=== PATIENT | female | born 1980 | race Hispanic/Latino ===

== ENCOUNTER → 2021-03-24 | Outpatient (CLI) | payer BC ==
[~2021-03-24] MED LIST: GADOTERATE MEGLUMINE 10 MMOL/20 ML VIAL IV ONE
== END | disposition home or self-care (01) ==
LOC: RAH 08:43
PROVIDERS: ATTEND Family Medicine
DX: S70.12XA Contusion of left thigh, initial encounter (principal); S80.12XA Contusion of left lower leg, initial encounter; M25.462 Effusion, left knee; M17.12 Unilateral primary osteoarthritis, left knee; M25.762 Osteophyte, left knee; X58.XXXA Exposure to other specified factors, initial encounter; Y93.89 Activity, other specified; Y92.89 Other specified places as the place of occurrence of the external cause; Y99.8 Other external cause status
CPT/HCPCS: 73723; A9575

== ENCOUNTER 2023-11-14 07:42 | Day surgery (SDC) | payer BC ==
[~2023-11-14] VITALS: Ht 167.6 cm; Wt 110.2 kg
[2023-11-14] VITALS (9 sets, daily range): BP systolic 123–163; BP diastolic 54–80; PULSE 60–72; RESP 15–17; TEMP 97.1–97.7
[2023-11-14] MEDS ORDERED: LOSA50TA64 PO (09:29)
[2023-11-14] MEDS ORDERED: PROP40TA7 PO (09:29)
[2023-11-14] MEDS ORDERED: proPOFol 10 MG/ML 20ML VIAL IV ONE (09:32)
[2023-11-14] MEDS ORDERED: LIDOCAINE PF 100MG/5ML (2%) SYRINGE 5ML ONE (09:32)
[2023-11-14] MEDS: 0.9%NACL 1000ML 1,000 ML IV ONE (09:35)
== END 2023-11-14 10:47 | disposition home or self-care (01) ==
LOC: ENDO 07:42
PROVIDERS: ATTEND Surgery
DX: R63.4 Abnormal weight loss (principal); K20.90 Esophagitis, unspecified without bleeding; K22.89 Other specified disease of esophagus; K31.89 Other diseases of stomach and duodenum; K44.9 Diaphragmatic hernia without obstruction or gangrene; I10 Essential (primary) hypertension; E78.5 Hyperlipidemia, unspecified; F41.9 Anxiety disorder, unspecified; E66.01 Morbid (severe) obesity due to excess calories; M19.90 Unspecified osteoarthritis, unspecified site; Z68.41 Body mass index [BMI] 40.0-44.9, adult; Z98.891 History of uterine scar from previous surgery; Z79.899 Other long term (current) drug therapy; Z98.890 Other specified postprocedural states
CPT/HCPCS: 82948; 81025; 43239; J7030; J2001; J2704; A4620; A4215 ×2; A4223; A4222; A4221; A4663; A4606; J3490

== ENCOUNTER → 2023-12-27 | Outpatient (CLI) | payer BC ==
[~2023-12-27] MED LIST changes: -GADOTERATE MEGLUMINE 10 MMOL/20 ML VIAL IV ONE; +LOSA50TA64 PO; +PROP40TA7 PO
[2023-12-27 16:29] LABS: CREATININE 0.7 mg/dL (0.5-1.0); POTASSIUM 3.8 mmol/L (3.5-5.1)
== END | disposition home or self-care (01) ==
LOC: LAB 15:37
PROVIDERS: ATTEND Internal Medicine
DX: R07.9 Chest pain, unspecified (principal)
CPT/HCPCS: 36415; 80048

== ENCOUNTER → 2024-01-03 | Outpatient (CLI) | payer BC ==
[~2024-01-03] MED LIST changes: +IOHEXOL 350 MG/ML 100ML INFUS..BTL IV ONE
== END | disposition home or self-care (01) ==
LOC: RAH 10:18
PROVIDERS: ATTEND Internal Medicine
DX: R07.9 Chest pain, unspecified (principal)
CPT/HCPCS: 75574; Q9967

== ENCOUNTER → 2024-01-09 | Outpatient (CLI) | payer BC ==
[~2024-01-09] MED LIST changes: -IOHEXOL 350 MG/ML 100ML INFUS..BTL IV ONE
== END | disposition home or self-care (01) ==
LOC: SHCH 10:44
PROVIDERS: ATTEND Internal Medicine
DX: R07.9 Chest pain, unspecified (principal)
CPT/HCPCS: 93306

== ENCOUNTER 2024-03-06 11:38 | Observation (INO) | payer BC ==
[2024-03-05 13:48] VITALS: BP 151/69; PULSE 70; RESP 14; TEMP 97.3
[2024-03-05 13:54] LABS: BASOPHILS # (AUTO) 0.04 K/uL (0.00-0.20); BASOPHILS % (AUTO) 0.4 % (0.0-5.0); EOSINOPHILS % (AUTO) 1.1 % (0.0-8.0); HEMATOCRIT 43.7 % (36-48); IMMATURE GRANULOCYTE ABSOLUTE 0.02 K/uL (0-1); LYMPHOCYTES # (AUTO) 2.2 K/uL (1.0-4.8); LYMPHOCYTES % (AUTO) 24.4 % (21.0-51.0); MEAN CORPUSCULAR HEMOGLOBIN 31.6 pg (27.0-33.0); MEAN CORPUSCULAR HGB CONC 33.4 g/dL (32.0-36.0); MEAN CORPUSCULAR VOLUME 94.6 fL (79-99); MONOCYTES # (AUTO) 0.5 K/uL (0.1-1.0); MONOCYTES % (AUTO) 5.5 % (3.0-13.0); NEUTROPHILS # (AUTO) 6.2 K/uL (1.8-7.7); NEUTROPHILS % (AUTO) 68.4 % (40.0-77.0); PLATELET COUNT (AUTO) 309 K/uL (130-400); RED BLOOD CELL COUNT(AUTO) 4.62 MIL/uL (4.00-5.50); RED CELL DISTRIBUTION WIDTH 12.8 % (11.0-15.5); WHITE BLOOD COUNT (AUTO) 9.1 K/uL (4.8-10.8)
[2024-03-05 14:09] LABS: ALBUMIN 3.7 g/dL (3.5-5.0); BILIRUBIN,TOTAL 0.5 mg/dL (0.2-1.0); CREATININE 0.8 mg/dL (0.5-1.0); POTASSIUM 4.3 mmol/L (3.5-5.1); TOTAL PROTEIN, SERUM 7.8 g/dL (6.0-8.3)
[2024-03-06] VITALS (23 sets, daily range): BP systolic 140–185; BP diastolic 62–107; PULSE 63–104; RESP 15–18; TEMP 96.8–98.2; O2SAT 94
[~2024-03-06] VITALS: Ht 162.6 cm; Wt 104.9 kg
[~2024-03-06 11:38] MED LIST changes: +ERGO500093 PO; +LOSA25TA41 PO; -LOSA50TA64 PO; +PRAV40TA3 PO
[2024-03-06] MEDS: acetaMINOPHEN 100 ML ONE (12:20)
[2024-03-06] MEDS: ceFAZolin SODIUM 2 GM VIAL ONE (12:58)
[2024-03-06] MEDS: LACTATED RINGERS 1000ML 1,000 ML IV ONE (12:58)
[2024-03-06] MEDS: metRONIDazole 500MG/100ML BAG 200 ML ONE (12:58)
[2024-03-06] MEDS ORDERED: BUPIvacaine/PF 0.25% 30ML VIAL IJ ONE (13:06)
[2024-03-06] MEDS ORDERED: MIDAZOLAM HCL 1 MG/ML 2ML VIAL ONE (14:21)
[2024-03-06] MEDS ORDERED: rocuRONium bROMide 10MG/1ML 5ML VL ONE ×2 (14:21→15:59)
[2024-03-06] MEDS ORDERED: LIDOCAINE PF 100MG/5ML (2%) SYRINGE 5ML ONE (14:21)
[2024-03-06] MEDS ORDERED: proPOFol 10 MG/ML 20ML VIAL IV ONE (14:21)
[2024-03-06] MEDS ORDERED: FENTanyl CITRate PF 50 MCG/1 ML 2ML VIAL ONE (14:24)
[2024-03-06] MEDS: BUPIvacaine/PF 0.25% 30ML VIAL IJ ONE (14:42)
[2024-03-06] MEDS ORDERED: dexaMETHasone SOD PHOSPHATE 10MG/ML 1ML VIAL ONE (14:49)
[2024-03-06] MEDS ORDERED: ondanSETRON 4MG INJ ONE (14:49)
[2024-03-06] MEDS ORDERED: NEOSTIGMINE METHYLSULFATE 1MG/ML IV ONE (16:37)
[2024-03-06] MEDS ORDERED: GLYCOPYRROLATE 0.2 MG/ML 5 ML VIAL ONE (16:37)
[2024-03-06] MEDS: LACTATED RINGERS 1000ML 1,000 ML IV SCH (17:00)
[2024-03-06] MEDS ORDERED: hydroMORPHone 0.5 MG SYG (0.5MG/0.5ML) IVP PRN (17:00)
[2024-03-06] MEDS ORDERED: ondanSETRON 4MG INJ IVP PRN (17:00)
--- NOTE | 2024-03-06 17:02 | OP ---
Operative Note: DATE OF PROCEDURE: 03/06/24 SURGEON: CRISTO TOM MD HAND LASTER: [Please review operative record] ANESTHESIA: [General and local] ANESTHESIOLOGIST/HEAVY EQUIPMENT SALES MANAGER: [Please review operative record] PREOPERATIVE DIAGNOSIS: [Morbid obesity and associated comorbidities including hyperlipidemia, hypertension. Diaphragmatic hernia] POSTOPERATIVE DIAGNOSIS: [Morbid obesity and associated comorbidities including hyperlipidemia hypertension] SYNOPSIS: EGD post sleeve gastrectomy with no air leak, no obstruction, no active intraluminal bleeding. Hiatal hernia repair deferred as there was no cli nically significant hiatal hernia on visual inspection.] PROCEDURE: [Robotic assisted laparoscopic vertical sleeve gastrectomy, intraoperative EGD, omentoplasty] ESTIMATED BLOOD LOSS: [30 cc] INDICATIONS: [Patient is a 44-year-old female with morbid obesity and associated comorbidities including hyperlipidemia hypertension. Patient has failed at attempts to lose weight through diet exercise and medication. Recommendation was given for bariatric surgery. Patient underwent bariatric surgery process and after the appropriate clearances, it was decided the sleeve gastrectomy was best surgical approach for this patient. There was an incidental finding of a small hiatal hernia on EGD. It was discussed the possibility of fixing this hernia at the time of surgery if it was clinically significant at the time. All risks, benefits, alternatives were discussed with the patient. All questions were answered. Patient agreed to proceed with surgical procedure of sleeve gastrectomy and depending on operative findings, hiatal hernia repair.] DESCRIPTION OF PROCEDURE: [After appropriate consent was obtained, the patient was brought into the operating room placed in supine position on the operating table. SCDs were placed, preop antibiotics were given. Patient underwent induction of general anesthesia, endotracheal intubation. Patient was prepped and draped in the usual sterile fashion. Time-out was performed. Upper endoscopy was performed by placing the adult endoscope through the mouth into the esophagus and into the stomach, gastric juices were sucked out. The endoscope was left in the esophagus for later use. Through a left subcostal incision, Veress needle was inserted into the peritoneal cavity. Insufflation was allowed to 12 mmHg. Through a supraumbilical incision, 8 mm trocar with laparoscope were inserted into the peritoneal cavity using Appear. Veress needle and this vicinity were examined with no signs of injury. Rest of my trocars were placed under direct visualization. A Josh liver retractor liver retractor was placed through a right upper quadrant incision in order to retract the left lobe of the liver anteriorly. At this time patient was positioned on a 20 degree reverse Trendelenburg. The Bria robot was docked. The diaphragmatic hiatus was examined, there was no diaphragmatic defect evident or herniation of the stomach into the mediastinum. Given no clinically significant evidence of hiatal hernia, we decided to defer the hiatal hernia repair at this time. We focused on vertical sleeve gastrectomy at this time. We mobilize the greater curvature of the stomach from the angle of his down to 3 cm proximal to the pylorus using the vessel sealer scalpel. We applied a blue load 4 cm from the pylorus parallel to the lesser curvature. We then passed the flexible endoscope from the esophagus into the stomach along the lesser curvature of the stomach and into the pylorus. We applied a series of white loads parallel to the endoscope up towards the angle of his. The staple lines were examined on both sides and found to be intact. Endoscopy with insufflation revealed no leaks, no active intraluminal bleeding, no obstruction. Scope was then withdrawn. And omental covering was placed over the staple edge of the stomach by suturing the omentum to the lesser curvature with the running 3-0 V lock absorbable suture. This completed the omentoplasty. The Bria robot was undocked at this time. The gastric remnant was brought out through a right upper quadrant port site. Final inspection revealed no bleeding or injury. We closed the 12 mm port with 0 Vicryl suture through a suture Passer. All instruments and trocars were removed. The abdomen was deflated. The skin incisions were closed with 4-0 Monocryl suture. Dermabond was applied over the incision. The procedure was tolerated well. Patient went to recovery in a good condition.] CRISTO TOM MD Mar 06, 2024 17:02
[2024-03-06] MEDS: MEPERIDINE-PF 25 MG/ML SYG ONE (17:03)
[2024-03-06] MEDS: metoCLOPRAmide 10 MG/2 ML VIAL ONE (17:03)
[2024-03-06] MEDS: ondanSETRON 4MG INJ ONE (17:03)
[2024-03-06] MEDS: ketOROlac 30MG VIAL (30MG/ML) ONE (17:06)
[2024-03-06] MEDS: ketOROlac 30MG VIAL (30MG/ML) IV SCH (17:07)
[2024-03-06] MEDS: PROMETHAZINE HCL 25 MG/ML 1ML AMPULE IM ONE (17:42)
[2024-03-06] MEDS: hydrALAZine 20MG/ML VIAL IV PRN (18:04)
[2024-03-06] MEDS: PROCHLORPERAZINE 10MG/2ML INJ IV PRN (18:08)
[2024-03-07] VITALS: BP 167/89; PULSE 108; RESP 19; TEMP 98.5
[2024-03-07 04:00] VITALS: BP 168/78; PULSE 113; RESP 20; TEMP 98.6
[2024-03-07] MEDS: HYDROcod/acetaMINOPHEN 7.5/325 MG 15 ML UDCUP PO PRN (05:07)
[2024-03-07 08:00] VITALS: BP 154/75; PULSE 102; RESP 16; TEMP 98.9; O2SAT 97
[2024-03-07] MEDS: PROPRANOLOL HCL 20 MG TAB PO SCH (08:21)
[2024-03-07] MEDS ORDERED: ENOXAPARIN SODIUM 30 MG/0.3 ML SQ SCH (10:00)
[2024-03-07] MEDS: ENOXAPARIN SODIUM 40 MG/0.4 ML SYRINGE SQ SCH (10:09)
--- NOTE | 2024-03-07 11:28 | NUR ---
DCP CM MET WITH PT ASSESSMENT DONE. PATIENT IS INDEPENDENT PRIOR TO SURGERY, LIVES AT HOME WITH SPOUSE. DENIES ANY EQUIPMENT/SERVICES. FEELS SAFE TO GO BACK HOME, STILL DRIVE, SPOUSE ABLE TO ASSIST WITH TRANSPORTATION AND NEEDS NECESSARY. [facility] [place] [facility]. DCP HOME ONCE STABLE. CM TO CONTINUE TO FOLLOW UP. Addendum: 03/07/24 at 1129 by ROMA PERKINS LVN CM Amended: Links added.
[2024-03-07 12:00] VITALS: BP 150/81; PULSE 63; RESP 16; TEMP 98.2
--- NOTE | 2024-03-07 13:08 | NUR ---
Nutrition consult per Pt bariatric Reviewed labs, notes, and medications. Pt spoke w/ clinical data coordinator for ~ 1 hr. Pt on phase 1 diet, sedated per chart review. Family present during visit. Pt reported 0% PO intake, NKFA, belching and gas, has nausea, denies emesis, has been walking, saw RD once, made an appointment with RD 1 month from now, no MVI, sees PCP when sick. RD reviewed educational material for post-op diet recommendations. Pt was informed of importance of lifelong vitamin/mineral supplementation, choosing protein first during meals (pt was educated on higher protein requirements), choosing low calorie, sugar free, carbonated free and caffeine beverages. RD also informed pt on lifelong commitment to exercise and dietary recommendations for optimal success post surgery. RD encouraged getting blood work every 3 to 6 months, including B-vitamins, Pt verbalized understanding. RD informed Pt on moving around after procedure to prevent DVT, Pt verbalized understanding. Pt was encouraged to contact RD as questions arise and to attend support groups. Fair compliance suspected. Pt will benefit from outpatient bariatric dietitian follow up post procedure. Pt to follow up with PCP for labs. Recommendations: -Continue phase 1 bariatric diet for 1 week -Monitor electrolytes -Monitor diet tolerance -Monitor BM -Monitor wts -Monitor PO intake -Recommend Pt to follow up with PCP -Monitor goals of care RD available for consult per protocol Addendum: 03/07/24 at [address] Amended: Links added.
[2024-03-07 16:00] VITALS: BP 151/84; PULSE 65; RESP 16; TEMP 98.2
--- NOTE | 2024-03-07 20:33 | NUR ---
NOTE SUMMARY/DC PATIENT ALERT X4 PATIENT WAS DC'D BY DR TOM TODAY I DC'D PATIENTS IV WITH CATH STILL IN PLACE AND APPLIED 2X2 GAUZE WITH COBAN I EXPLAINED TO PATIENT TO FOLLOW UP WITH DR TOM SCHEDULED PATIENT IS AMBULATING WELL, PASSING GAS, PAIN TOLERATED, AND TOLERATING DIET I PROVIDED PATIENT WITH ABDOMINAL BINDER TO TAKE HOME PATIENT WAS TAKEN VIA WHEELCHAIR BY BRIAN MERCER, NO COMPLICATIONS
== END 2024-03-07 18:05 | disposition home or self-care (01) ==
LOC: DAH 11:38 → DAHIP 11:39 → DAH 11:39 → INTOOBSV 11:39 → 4AH 17:38
PROVIDERS: ADMIT Surgery; ATTEND Surgery
DX: E66.01 Morbid (severe) obesity due to excess calories (principal); K44.9 Diaphragmatic hernia without obstruction or gangrene; I10 Essential (primary) hypertension; E87.5 Hyperkalemia; M19.90 Unspecified osteoarthritis, unspecified site; F41.9 Anxiety disorder, unspecified; E55.9 Vitamin D deficiency, unspecified; G43.909 Migraine, unspecified, not intractable, without status migrainosus; R73.03 Prediabetes; Z68.39 Body mass index [BMI] 39.0-39.9, adult; Z79.899 Other long term (current) drug therapy
CPT/HCPCS: 80053; 84703; 85025; 86850; 86900; 86901; 36415; 43775; 96374; 96372 ×2; 96375; 88312; 88307; 96376; 97161; 97116; A6260; G0378 ×7; A4663; J7030; A4215 ×2; J7120; J3010; J1100; J0665 ×2; J2550; J3490 ×4; J2003; J0360; J0780; J2250; J2704; J2405 ×2; J1885 ×3; J2710; J2175; J2765; J0690; A4223 ×2; A4213; A4222; A4221; A4216; A4600; J1650 ×2; 43235